=== PATIENT | female | born 1955 | race Caucasian/White ===

== ENCOUNTER 2022-05-18 04:18 | Day surgery (SDC) | payer OTHER ==
[2022-05-17 11:48] VITALS: BMI 22.1
[2022-05-18] MEDS ORDERED: TETRACAINE 0.5% OPHTH SOLN 2 ML BOTTLE ONE (07:25)
[2022-05-18] MEDS ORDERED: POVIDONE-IODINE 5% OPHTHALMIC PREP 30 ML SOLUTION ONE (07:25)
[2022-05-18] MEDS ORDERED: LIDOCAINE HCL/PF 1% SDV 5ML VIAL ONE (07:25)
[2022-05-18] MEDS ORDERED: TOBRAMYCIN/DEXAMETHASONE OPHTH. OINTMENT 1 TUBE ONE (07:25)
[2022-05-18] MEDS ORDERED: BSS (NA/CA/MG/K) BALANCED SALT SOLUTION OPHTH SOLN 15 ML BOTTLE ONE (07:33)
[2022-05-18] MEDS ORDERED: ACETAMINOPHEN 325 MG TABLET (FP) PO PRN (07:36)
[2022-05-18] MEDS ORDERED: TROPICAMIDE 1% OPHTH SOLN 15 ML BOTTLE OP SCH (07:45)
[2022-05-18] MEDS ORDERED: KETOROLAC TROMETHAMINE 0.5% EYE DROP 1 DROP DROPS OP SCH (07:45)
[2022-05-18] MEDS ORDERED: PHENYLEPHRINE 2.5% OPHTH SOLN 15 ML BOTTLE OP SCH (07:45)
[2022-05-18] MEDS ORDERED: CIPROFLOXACIN HCL 0.3% OPHTH 2.5ML BOTTLE OP SCH (07:45)
[2022-05-18] MEDS ORDERED: CIPROFLOXACIN HCL 0.3% OPHTH 2.5ML BOTTLE ONE (08:59)
[2022-05-18] MEDS ORDERED: PHENYLEPHRINE 2.5% OPTHALMIC DROP 2ML BOTTLE ONE (08:59)
[2022-05-18] MEDS ORDERED: TROPICAMIDE 1% OPHTH SOLN 15 ML BOTTLE ONE (08:59)
[2022-05-18] MEDS ORDERED: KETOROLAC TROMETHAMINE 0.5% EYE DROP 1 DROP DROPS ONE (08:59)
[2022-05-18] MEDS ORDERED: CIPROFLOXACIN HCL 0.3% OPHTH 2.5ML BOTTLE OS ONE ×3 (09:45→10:15)
[2022-05-18] MEDS ORDERED: PHENYLEPHRINE 2.5% OPHTH SOLN 15 ML BOTTLE OS ONE ×3 (09:45→10:15)
[2022-05-18] MEDS ORDERED: TROPICAMIDE 1% OPHTH SOLN 15 ML BOTTLE OS ONE ×3 (09:45→10:15)
[2022-05-18] MEDS ORDERED: KETOROLAC TROMETHAMINE 0.5% EYE DROP 1 DROP DROPS OS ONE ×3 (09:45→10:15)
[2022-05-18 09:51] VITALS: RESP 18
[2022-05-18] MEDS ORDERED: TRYPAN BLUE 0.5 ML DISP.SYRIN ONE (11:41)
[2022-05-18] MEDS ORDERED: MIDAZOLAM HCL 2 MG/2 ML SINGLE DOSE VIAL ONE (11:46)
[2022-05-18] MEDS ORDERED: TETRACAINE 0.5% OPHTH SOLN 2 ML BOTTLE OS ONE (11:49)
[2022-05-18] MEDS ORDERED: POVIDONE-IODINE 5% OPHTHALMIC PREP 30 ML SOLUTION OS ONE (11:50)
[2022-05-18] MEDS ORDERED: BSS (NA/CA/MG/K) BALANCED SALT SOLUTION OPHTH SOLN 15 ML BOTTLE IO ONE (11:53)
[2022-05-18] MEDS ORDERED: LIDOCAINE HCL 1% PRESERVATIVE FREE - 30ML VIAL IO ONE (11:55)
[2022-05-18] MEDS ORDERED: TRYPAN BLUE 0.5 ML DISP.SYRIN IO ONE (11:55)
[2022-05-18] MEDS ORDERED: CHONDROITIN SU A/HYALUR SOD 1 KIT IO ONE (11:56)
[2022-05-18] MEDS ORDERED: EPINEPHrine/PF 1 MG/1 ML (1:1,000) AMPULE SQ ONE (12:00)
[2022-05-18] MEDS ORDERED: TOBRAMYCIN/DEXAMETHASONE OPHTH. OINTMENT 1 TUBE OS ONE (12:10)
[2022-05-18 15:11] VITALS: BP 130/70; PULSE 90; TEMP 98
== END 2022-05-18 13:30 | disposition home or self-care (01) ==
LOC: JASU-SURG 04:18
PROVIDERS: ATTEND Ophthalmology
PROC: 08RK3JZ Replacement of Left Lens with Synthetic Substitute, Percutaneous Approach (ICD-10-PCS; principal; 2022-05-18 11:30)
DX: H26.9 Unspecified cataract (principal)

== ENCOUNTER 2022-06-01 04:02 | Day surgery (SDC) | payer OTHER ==
[2022-05-30 09:33] VITALS: BMI 22.1
[~2022-06-01 04:02] MED LIST: BSS (NA/CA/MG/K) BALANCED SALT SOLUTION OPHTH SOLN 15 ML BOTTLE OD ONE; CHONDROITIN SU A/HYALUR SOD 1 KIT IO ONE; EPINEPHrine/PF 1 MG/1 ML (1:1,000) AMPULE SQ ONE; LIDOCAINE 1% P/F 10 MG/ML VIAL PNB ONE; POVIDONE-IODINE 5% OPHTHALMIC PREP 30 ML SOLUTION OD ONE; TETRACAINE 0.5% OPHTH SOLN 2 ML BOTTLE OD ONE; TOBRAMYCIN/DEXAMETHASONE OPHTH. OINTMENT 1 TUBE OD ONE
[2022-06-01] MEDS ORDERED: TOBRAMYCIN/DEXAMETHASONE OPHTH. OINTMENT 1 TUBE ONE (07:30)
[2022-06-01] MEDS ORDERED: LIDOCAINE HCL/PF 2% SDV 5ML VIAL ONE (07:30)
[2022-06-01] MEDS ORDERED: BUPIVACAINE HCL/PF 0.75% 10 ML VIAL ONE (07:31)
[2022-06-01] MEDS ORDERED: POVIDONE-IODINE 5% OPHTHALMIC PREP 30 ML SOLUTION ONE (07:31)
[2022-06-01] MEDS ORDERED: ACETAMINOPHEN 325 MG TABLET (FP) PO PRN (07:32)
[2022-06-01] MEDS: PHENYLEPHRINE 2.5% OPHTH SOLN 15 ML BOTTLE OP SCH ×3 (09:10→09:34)
[2022-06-01] MEDS: KETOROLAC TROMETHAMINE 0.5% EYE DROP 1 DROP DROPS OP SCH ×3 (09:10→09:34)
[2022-06-01] MEDS: CIPROFLOXACIN HCL 0.3% OPHTH 2.5ML BOTTLE OP SCH ×3 (09:10→09:34)
[2022-06-01] MEDS: TROPICAMIDE 1% OPHTH SOLN 15 ML BOTTLE OP SCH ×3 (09:10→09:34)
[2022-06-01] MEDS ORDERED: PHENYLEPHRINE 2.5% OPTHALMIC DROP 2ML BOTTLE ONE (09:18)
[2022-06-01] MEDS ORDERED: KETOROLAC TROMETHAMINE 0.5% EYE DROP 1 DROP DROPS ONE (09:18)
[2022-06-01] MEDS ORDERED: CIPROFLOXACIN HCL 0.3% OPHTH 2.5ML BOTTLE ONE (09:18)
[2022-06-01] MEDS ORDERED: TROPICAMIDE 1% OPHTH SOLN 15 ML BOTTLE ONE (09:18)
[2022-06-01] MEDS ORDERED: LIDOCAINE HCL/PF 1% SDV 5ML VIAL ONE (11:54)
[2022-06-01] MEDS ORDERED: MIDAZOLAM HCL 2 MG/2 ML SINGLE DOSE VIAL ONE (12:22)
[2022-06-01] MEDS ORDERED: TETRACAINE 0.5% OPHTH SOLN 2 ML BOTTLE OD ONE (12:24)
[2022-06-01] MEDS ORDERED: POVIDONE-IODINE 5% OPHTHALMIC PREP 30 ML SOLUTION OD ONE (12:25)
[2022-06-01] MEDS ORDERED: BSS (NA/CA/MG/K) BALANCED SALT SOLUTION OPHTH SOLN 15 ML BOTTLE OD ONE (12:28)
[2022-06-01] MEDS ORDERED: TRYPAN BLUE 0.5 ML DISP.SYRIN IO ONE ×2 (12:31→12:32)
[2022-06-01] MEDS ORDERED: LIDOCAINE 1% P/F 10 MG/ML VIAL PNB ONE (12:31)
[2022-06-01] MEDS ORDERED: CHONDROITIN SU A/HYALUR SOD 1 KIT IO ONE (12:33)
[2022-06-01] MEDS ORDERED: EPINEPHrine/PF 1 MG/1 ML (1:1,000) AMPULE SQ ONE (12:37)
[2022-06-01] MEDS ORDERED: TOBRAMYCIN/DEXAMETHASONE OPHTH. OINTMENT 1 TUBE OD ONE (12:49)
[2022-06-01 15:13] VITALS: RESP 18
[2022-06-01 15:16] VITALS: BP 108/65; PULSE 89; TEMP 97.9
== END 2022-06-01 14:04 ==
LOC: JASU-SURG 04:02
PROVIDERS: ATTEND Ophthalmology
PROC: 08RJ3JZ Replacement of Right Lens with Synthetic Substitute, Percutaneous Approach (ICD-10-PCS; principal; 2022-06-01 11:30)
DX: H26.9 Unspecified cataract (principal)
CPT/HCPCS: V2632

== ENCOUNTER 2023-01-02 04:26 | Day surgery (SDC) | payer OTHER ==
[2022-12-13 13:24] VITALS: BMI 22.8
[2023-01-02] MEDS ORDERED: HEPARIN NA (PORCINE) 5,000 UNITS/ML 1ML VIAL ONE (10:07)
[2023-01-02] MEDS ORDERED: ceFAZolin SODIUM 1 GM VIAL IVPB ONE (10:30)
[2023-01-02] MEDS ORDERED: BUPIVACAINE HCL/PF 0.25% (2.5MG/ML) 10 ML VIAL IJ ONE ×2 (10:53)
[2023-01-02] MEDS ORDERED: DEXAMETHASONE SOD PHOSPHATE 4 MG/1 ML VIAL ONE (11:38)
[2023-01-02] MEDS ORDERED: ONDANSETRON 4 MG/2 ML VIAL ONE (11:38)
[2023-01-02] MEDS ORDERED: SUGAMMADEX SODIUM 200 MG/2 ML VIAL ONE (12:07)
[2023-01-02] MEDS ORDERED: ONDANSETRON 4 MG/2 ML VIAL IVPUSH PRN (13:26)
[2023-01-02] MEDS ORDERED: oxyCODONE HCL 5 MG TABLET PO PRN (13:26)
[2023-01-02] MEDS ORDERED: ACETAMINOPHEN 500 MG TABLET (FP) PO PRN (13:26)
[2023-01-02] MEDS ORDERED: LABETALOL HCL 5 MG/1 ML (100MG/20 ML VIAL) IVPUSH ONE (13:28)
[2023-01-02] MEDS ORDERED: LACTATED RINGERS SOLUTION 1,000 ML IV SCH (13:30)
[2023-01-02] MEDS ORDERED: LABETALOL HCL 5 MG/1 ML (100MG/20 ML VIAL) ONE (13:50)
[2023-01-02] MEDS ORDERED: ACETAMINOPHEN 500 MG TABLET (FP) ONE (16:36)
[2023-01-02 17:13] VITALS: RESP 20
[2023-01-02 18:21] VITALS: BP 126/70; PULSE 70; TEMP 97.8
== END 2023-01-02 18:21 | disposition home or self-care (01) ==
LOC: JASU-SURG 04:26
PROVIDERS: ATTEND Surgery
PROC: 8E0W4CZ Robotic Assisted Procedure of Trunk Region, Percutaneous Endoscopic Approach (ICD-10-PCS; 2023-01-02)
PROC: 0WUF4JZ Supplement Abdominal Wall with Synthetic Substitute, Percutaneous Endoscopic Approach (ICD-10-PCS; principal; 2023-01-02 10:00)
DX: K42.9 Umbilical hernia without obstruction or gangrene (principal)
CPT/HCPCS: 86850; 86900; 86901; 94760; C1781; J1644

== ENCOUNTER 2023-03-28 18:32 | Emergency (ER) | payer OTHER ==
[2023-03-28 18:55] VITALS: BMI 23.8
[2023-03-28] MEDS ORDERED: ACETAMINOPHEN 325 MG TABLET (FP) PO ONE (19:51)
[2023-03-28] MEDS ORDERED: ACETAMINOPHEN 325 MG TABLET (FP) ONE (20:32)
[2023-03-28 20:48] LABS: EOS % 6.5 % (0-4.5); HEMOGLOBIN 10.8 GM/dL (10.7-15.3); LYMPH % 36.8 % (8-40); MCHC 32.7 g/dl (32.0-36.0); MEAN PLT VOLUME 7.5 fl (7.5-11.1); MONO % 9.9 % (3.8-10.2); NEUT % 45.8 % (42.8-82.8); PLATELET COUNT 231 10^3/uL (134-434); RBC 3.37 M/mm3 (3.60-5.2); RDW 15.6 % (11.6-15.6); WHITE BLOOD COUNT 6.8 K/mm3 (4.0-10.0)
[2023-03-28 20:57] LABS: INR 0.99 (0.83-1.09); PROTHROMBIN TIME (PATIENT) 11.5 SEC (9.7-13.0)
[2023-03-28 21:00] LABS: ACTIVATED PTT 28.3 SECONDS (25.2-36.5)
[2023-03-28 21:02] LABS: CHLORIDE 108 mmol/L (98-107); POTASSIUM 3.8 mmol/L (3.5-5.1); SODIUM 141 mmol/L (136-145)
[2023-03-28 21:04] LABS: ALBUMIN 3.1 g/dl (3.4-5.0); ANION GAP 6 mmol/L (4-13); CALCIUM 9.2 mg/dL (8.5-10.1); CO2 27 mmol/L (21-32); GLUCOSE,RANDOM 94 mg/dL (74-106)
[2023-03-28 21:07] LABS: CREATININE 0.8 mg/dL (0.55-1.3); SGOT/AST 20 U/L (15-37); SGPT/ALT 14 U/L (13-61)
[2023-03-28 21:09] LABS: BILIRUBIN,TOTAL < 0.1 mg/dL (0.2-1); TOT PROT 7.4 g/dl (6.4-8.2)
[2023-03-28 21:10] LABS: ALK PHOS 139 U/L (45-117)
[2023-03-29 11:18] VITALS: BP 130/76; PULSE 94; RESP 16; TEMP 98.1
== END 2023-03-29 11:31 | disposition home or self-care (01) ==
LOC: JER 18:32
DX: R04.0 Epistaxis (principal); I10 Essential (primary) hypertension; R42 Dizziness and giddiness; R51.9 Headache, unspecified
CPT/HCPCS: 36415; 80053; 85025; 85610; 85730; 86850; 86900; 86901; 93005; 93010; 99284-25

== ENCOUNTER 2023-06-13 10:45 | Emergency (ER) | payer OTHER ==
[2023-06-13 11:13] VITALS: BP 117/72; PULSE 92; RESP 18; TEMP 98.4; BMI 21.3
[2023-06-13 13:31] LABS: BASO % 0.5 % (0-2.0); EOS % 4.7 % (0-4.5); HEMATOCRIT 35.9 % (32.4-45.2); HEMOGLOBIN 11.8 GM/dL (10.7-15.3); LYMPH % 19.9 % (8-40); MCH 31.1 pg (25.7-33.7); MEAN CELL VOLUME 94.3 fl (80-96); MONO % 7.7 % (3.8-10.2); NEUT % 67.2 % (42.8-82.8); PLATELET COUNT 249 10^3/uL (134-434); RBC 3.81 M/mm3 (3.60-5.2); RDW 15.4 % (11.6-15.6); WHITE BLOOD COUNT 8.8 K/mm3 (4.0-10.0)
[2023-06-13 13:52] LABS: CHLORIDE 100 mmol/L (98-107)
[2023-06-13 13:57] LABS: CALCIUM 8.6 mg/dL (8.5-10.1)
[2023-06-13 13:58] LABS: ALBUMIN 2.3 g/dl (3.4-5.0); BLOOD UREA NITROGEN 18.6 mg/dL (7-18); GLUCOSE,RANDOM 78 mg/dL (74-106)
[2023-06-13 14:01] LABS: CREATININE 0.8 mg/dL (0.55-1.3)
[2023-06-13] MEDS ORDERED: ALBUTEROL SO4 2.5/IPRATROPIUM 0.5 INH SOL 3 ML VIAL.NEB. NEB ONE (14:09)
[2023-06-13] MEDS ORDERED: methylPREDNISolone NA SUCC 125 MG/2 ML VIAL ONE (14:10)
[2023-06-13] MEDS: methylPREDNISolone NA SUCC 125 MG/2 ML VIAL IVPUSH ONE (14:14)
[2023-06-13] MEDS: ALBUTEROL SO4 2.5/IPRATROPIUM 0.5 INH SOL 3 ML VIAL.NEB. NEB SCH (14:14)
[2023-06-13 15:22] LABS: POTASSIUM 3.9 mmol/L (3.5-5.1)
[2023-06-13 15:25] LABS: MAGNESIUM 2.1 mg/dL (1.8-2.4)
[2023-06-13 15:28] LABS: CREATININE 0.8 mg/dL (0.55-1.3)
[2023-06-13 15:29] LABS: BILIRUBIN,TOTAL 0.2 mg/dL (0.2-1)
[2023-06-13 15:31] LABS: ALBUMIN 3.1 g/dl (3.4-5.0); TOT PROT 7.5 g/dl (6.4-8.2)
[2023-06-13 17:05] LABS: EPI CELLS 10 /uL (0-25.1); HYALINE CASTS 0 /uL (0-3.1); URINE APPEARANCE CLOUDY; URINE BACTERIA 386 /uL (0-1359); URINE BILIRUBIN NEGATIVE (NEGATIVE); URINE COLOR YELLOW; URINE GLUCOSE (UA) NEGATIVE (NEGATIVE); URINE KETONE NEGATIVE (NEGATIVE); URINE LEUK ESTERASE 2+ (NEGATIVE); URINE NITRITE NEGATIVE (NEGATIVE); URINE PROTEIN TRACE (NEGATIVE); URINE RBC 4290 /uL (0-23.9); URINE UROBILINOGEN 0.2 mg/dL (0.2-1.0); URINE WBC 1034 /uL (0-25.8)
== END 2023-06-13 21:39 ==
LOC: JER 10:45
PROC: 3E033GC Introduction of Other Therapeutic Substance into Peripheral Vein, Percutaneous Approach (ICD-10-PCS; principal; 2023-06-13)
PROC: 3E0F7GC Introduction of Other Therapeutic Substance into Respiratory Tract, Via Natural or Artificial Opening (ICD-10-PCS; 2023-06-13)
DX: R04.2 Hemoptysis (principal); R05.9 Cough, unspecified; R07.89 Other chest pain; J43.9 Emphysema, unspecified; J44.9 Chronic obstructive pulmonary disease, unspecified; N39.0 Urinary tract infection, site not specified; Z20.822 Contact with and (suspected) exposure to COVID-19
CPT/HCPCS: 0241U-QW; 36415; 71046-TC-FY; 71250-TC; 80053; 81003; 83735; 84484; 85025; 87086; 93005; 93010; 99285-25

== ENCOUNTER 2023-08-30 02:29 | Inpatient (IN) | payer OTHER ==
[2023-08-30] MEDS ORDERED: ACETAMINOPHEN INJECTION 100 ML IVPB ONE (03:18)
[2023-08-30] MEDS ORDERED: PANTOPRAZOLE SODIUM 40 MG VIAL ONE (03:19)
[2023-08-30] MEDS ORDERED: FAMOTIDINE 20 MG/50 ML IVPB 20 MG/50 ML MG IVPB ONE (03:19)
[2023-08-30] MEDS: PANTOPRAZOLE SODIUM 40 MG VIAL IVPUSH ONE (03:35)
[2023-08-30 03:47] LABS: BASO % 0.2 % (0-2.0); EOS % 1.4 % (0-4.5); HEMATOCRIT 39.6 % (32.4-45.2); LYMPH % 9.8 % (8-40); MCH 30.7 pg (25.7-33.7); MCHC 32.7 g/dl (32.0-36.0); MEAN PLT VOLUME 8.5 fl (7.5-11.1); MONO % 3.5 % (3.8-10.2); NEUT % 85.1 % (42.8-82.8); PLATELET COUNT 235 10^3/uL (134-434); RBC 4.22 M/mm3 (3.60-5.2); RDW 14.8 % (11.6-15.6); WHITE BLOOD COUNT 10.2 K/mm3 (4.0-10.0)
[2023-08-30 03:52] LABS: INR 0.96 (0.83-1.09); PROTHROMBIN TIME (PATIENT) 10.9 SEC (9.7-13.0)
[2023-08-30] MEDS: LACTATED RINGERS SOLUTION 1000 ML INFUS.BAG IV ONE (03:56)
[2023-08-30] MEDS: ACETAMINOPHEN 1000 MG/100 ML BAG IVPB ONE (03:56)
[2023-08-30 04:06] LABS: POTASSIUM 4.1 mmol/L (3.5-5.1)
[2023-08-30 04:08] LABS: CALCIUM 9.4 mg/dL (8.5-10.1); MAGNESIUM 2.1 mg/dL (1.8-2.4)
[2023-08-30 04:09] LABS: ALBUMIN 3.2 g/dl (3.4-5.0)
[2023-08-30 04:11] LABS: CREATININE 0.9 mg/dL (0.55-1.3)
[2023-08-30 04:13] LABS: BILIRUBIN,TOTAL 0.3 mg/dL (0.2-1)
[2023-08-30] MEDS: FAMOTIDINE 20 MG/50 ML IVPB 20 MG/50 ML MG IVPB ONE (04:19)
[2023-08-30 04:25] LABS: LACTIC ACID 2.2 mmol/L (0.4-2.0)
[2023-08-30 06:19] LABS: HEMATOCRIT 36.3 % (32.4-45.2); HEMOGLOBIN 11.6 GM/dL (10.7-15.3); MCH 30.3 pg (25.7-33.7); MCHC 32.1 g/dl (32.0-36.0); MEAN CELL VOLUME 94.4 fl (80-96); MEAN PLT VOLUME 8.4 fl (7.5-11.1); PLATELET COUNT 194 10^3/uL (134-434); RBC 3.84 M/mm3 (3.60-5.2); RDW 14.6 % (11.6-15.6); WHITE BLOOD COUNT 7.9 K/mm3 (4.0-10.0)
[2023-08-30 06:40] LABS: POTASSIUM 4.1 mmol/L (3.5-5.1)
[2023-08-30 06:41] LABS: CALCIUM 8.6 mg/dL (8.5-10.1)
[2023-08-30 06:42] LABS: BLOOD UREA NITROGEN 18.7 mg/dL (7-18); MAGNESIUM 1.9 mg/dL (1.8-2.4)
[2023-08-30 06:45] LABS: CREATININE 0.7 mg/dL (0.55-1.3)
[2023-08-30 07:04] LABS: LACTIC ACID 2.3 mmol/L (0.4-2.0)
[2023-08-30 08:29] LABS: PH,URINE 5.5 (5.0-8.0); URINE APPEARANCE CLOUDY; URINE BILIRUBIN NEGATIVE (NEGATIVE); URINE COLOR YELLOW; URINE GLUCOSE (UA) NEGATIVE (NEGATIVE); URINE KETONE NEGATIVE (NEGATIVE); URINE PROTEIN TRACE (NEGATIVE); URINE UROBILINOGEN 0.2 mg/dL (0.2-1.0)
[2023-08-30 08:30] LABS: EPI CELLS 22 /uL (0-25.1); HYALINE CASTS 8 /uL (0-3.1); URINE BACTERIA 371 /uL (0-1359); URINE LEUK ESTERASE TRACE (NEGATIVE); URINE NITRITE NEGATIVE (NEGATIVE); URINE RBC 1993 /uL (0-23.9); URINE WBC 1180 /uL (0-25.8)
[2023-08-30] MEDS ORDERED: ACETAMINOPHEN 1000 MG/100 ML BAG IVPB PRN (10:15)
[2023-08-30 11:51] VITALS: BMI 25.0
[2023-08-30] MEDS ORDERED: oxyCODONE HCL 5 MG TABLET PO PRN (12:12)
[2023-08-30] MEDS ORDERED: ALBUTEROL SO4 HFA INHALER IH PRN (12:12)
[2023-08-30] MEDS: ERTAPENEM SODIUM 1 GM in SODIUM CHLORIDE 50 ML IVPB SCH (14:00)
[2023-08-30] MEDS: SODIUM CHLORIDE 1,000 ML IV SCH (14:00)
[2023-08-30] MEDS: METHOCARBAMOL 500 MG TABLET PO SCH (14:02)
[2023-08-30] MEDS: GABAPENTIN 300 MG CAPSULE PO SCH (14:02)
[2023-08-30] MEDS: ACETAMINOPHEN 1000 MG/100 ML BAG IVPB PRN (20:16)
[2023-08-30] MEDS: ATORVASTATIN CA 80 MG TABLET (FP) PO SCH (22:06)
[2023-08-31 08:55] LABS: POTASSIUM 3.7 mmol/L (3.5-5.1)
[2023-08-31 09:09] LABS: CALCIUM 8.4 mg/dL (8.5-10.1)
[2023-08-31 09:10] LABS: BLOOD UREA NITROGEN 14.6 mg/dL (7-18)
[2023-08-31 09:11] LABS: BASO % 0.4 % (0-2.0); EOS % 5.8 % (0-4.5); HEMATOCRIT 33.9 % (32.4-45.2); LYMPH % 34.5 % (8-40); MCH 30.5 pg (25.7-33.7); MCHC 32.5 g/dl (32.0-36.0); MEAN CELL VOLUME 93.9 fl (80-96); MEAN PLT VOLUME 8.4 fl (7.5-11.1); NEUT % 44.3 % (42.8-82.8); PLATELET COUNT 173 10^3/uL (134-434); RBC 3.61 M/mm3 (3.60-5.2)
[2023-08-31 09:12] LABS: CREATININE 0.7 mg/dL (0.55-1.3)
[2023-08-31 09:13] LABS: TOT PROT 6.1 g/dl (6.4-8.2)
[2023-08-31 09:14] LABS: BILIRUBIN,TOTAL 0.2 mg/dL (0.2-1)
[2023-08-31 09:16] LABS: ALBUMIN 2.5 g/dl (3.4-5.0)
[2023-08-31] MEDS: CLOPIDOGREL BISULFATE 75 MG TABLET (FP) PO SCH (10:20)
[2023-08-31] MEDS: ASPIRIN 81 MG CHEWABLE TABLETS PO SCH (10:20)
[2023-08-31] MEDS: FAMOTIDINE 20 MG TABLET PO SCH (10:20)
[2023-08-31] MEDS: DULoxetine HCL 20 MG CAPSULE.DR PO SCH (10:20)
[2023-08-31] MEDS: oxyCODONE HCL 5 MG TABLET PO PRN (18:27)
[2023-09-01] MEDS ORDERED: ALBUTEROL SO4 2.5/IPRATROPIUM 0.5 INH SOL 3 ML VIAL.NEB. NEB PRN (12:11)
[2023-09-01] MEDS: TAMSULOSIN HCL 0.4 MG CAP PO SCH (13:19)
[2023-09-01] MEDS: BUDESONIDE/FORMETEROL FUMARATE 160/4.5 mcg INHALER IH SCH (14:47)
[2023-09-01] MEDS: ONDANSETRON 4 MG TABLET PO ONE (14:48)
[2023-09-02] MEDS ORDERED: POLYETHYLENE GLYCOL (HEALTHYLAX) 3350 17 GM PACKET PO PRN (10:42)
[2023-09-02] MEDS: ACETAMINOPHEN 325 MG TABLET (FP) PO PRN (18:40)
[2023-09-03] MEDS: BISMUTH SUBSALICYLATE 524 MG/30 ML PO PRN (14:01)
[2023-09-03 15:31] VITALS: RESP 18
[2023-09-04 07:42] VITALS: BP 138/86; PULSE 79; TEMP 98.3
== END 2023-09-04 14:45 | DRG 392 ==
LOC: JER 02:29 → JERBED 09:42 → J8W 11:04 → OBSVTOIN 08-31 11:11
PROVIDERS: ADMIT Internal Medicine; ATTEND Internal Medicine
DX: K52.9 Noninfective gastroenteritis and colitis, unspecified (principal); J45.909 Unspecified asthma, uncomplicated; J44.9 Chronic obstructive pulmonary disease, unspecified; E78.5 Hyperlipidemia, unspecified; I25.10 Atherosclerotic heart disease of native coronary artery without angina pectoris; I73.9 Peripheral vascular disease, unspecified; M32.9 Systemic lupus erythematosus, unspecified; N20.0 Calculus of kidney; I12.9 Hypertensive chronic kidney disease with stage 1 through stage 4 chronic kidney disease, or unspecified chronic kidney disease; N18.9 Chronic kidney disease, unspecified; F32.A Depression, unspecified; R50.9 Fever, unspecified; R32 Unspecified urinary incontinence; Z89.612 Acquired absence of left leg above knee; Z89.511 Acquired absence of right leg below knee; Z95.5 Presence of coronary angioplasty implant and graft
CPT/HCPCS: 36415; 74177-TC; 80048; 80053; 81003; 83605; 83690; 83735; 84484; 85025; 85027; 85610; 85730; 86850; 86900; 86901; 87040; 87086; 87635; 93005; 93010; 99285-25; G0378; J0131; Q9967

== ENCOUNTER 2023-10-04 23:41 | Inpatient (IN) | payer OTHER ==
[2023-10-04 23:48] VITALS: BMI 28.7
[2023-10-05] MEDS ORDERED: NYSTATIN 500,000 UNITS/5 ML SUSPENSION ONE (00:44)
[2023-10-05] MEDS ORDERED: ALBUTEROL SO4 2.5/IPRATROPIUM 0.5 INH SOL 3 ML VIAL.NEB. NEB ONE (00:44)
[2023-10-05 00:48] LABS: BASO % 0.7 % (0-2.0); EOS % 1.9 % (0-4.5); HEMATOCRIT 35.9 % (32.4-45.2); HEMOGLOBIN 11.9 GM/dL (10.7-15.3); LYMPH % 16.2 % (8-40); MCH 30.9 pg (25.7-33.7); MEAN CELL VOLUME 93.4 fl (80-96); MEAN PLT VOLUME 7.5 fl (7.5-11.1); MONO % 9.7 % (3.8-10.2); NEUT % 71.5 % (42.8-82.8); PLATELET COUNT 286 10^3/uL (134-434); RBC 3.85 M/mm3 (3.60-5.2); RDW 14.4 % (11.6-15.6); WHITE BLOOD COUNT 10.5 K/mm3 (4.0-10.0)
[2023-10-05] MEDS: NYSTATIN 500,000 UNITS/5 ML SUSPENSION PO ONE (00:50)
[2023-10-05] MEDS: ALBUTEROL SO4 2.5/IPRATROPIUM 0.5 INH SOL 3 ML VIAL.NEB. NEB SCH (00:53)
[2023-10-05] MEDS: LACTATED RINGERS SOLUTION 1000 ML INFUS.BAG IV ONE (01:00)
[2023-10-05 01:03] LABS: THROAT:GRP A STREP NOT DETECTED (NOTDETECTED)
[2023-10-05 01:15] LABS: POTASSIUM 3.6 mmol/L (3.5-5.1)
[2023-10-05 01:17] LABS: CALCIUM 9.2 mg/dL (8.5-10.1)
[2023-10-05 01:18] LABS: ALBUMIN 2.9 g/dl (3.4-5.0)
[2023-10-05 01:21] LABS: CREATININE 1.1 mg/dL (0.55-1.3)
[2023-10-05 01:23] LABS: BILIRUBIN,TOTAL 0.4 mg/dL (0.2-1)
[2023-10-05] MEDS ORDERED: ACETAMINOPHEN INJECTION 100 ML IVPB ONE (02:06)
[2023-10-05] MEDS ORDERED: METOCLOPRAMIDE HCL INJECTION 10 MG/2 ML VIAL ONE (02:06)
[2023-10-05] MEDS: METOCLOPRAMIDE HCL INJECTION 10 MG/2 ML VIAL IVPUSH ONE (02:10)
[2023-10-05] MEDS: ACETAMINOPHEN 1000 MG/100 ML BAG IVPB ONE (02:10)
[2023-10-05 03:06] LABS: EPI CELLS >36 /uL (0-25.1); HYALINE CASTS 12 /uL (0-3.1); PH,URINE 5.5 (5.0-8.0); URINE APPEARANCE TURBID; URINE BACTERIA 2374 /uL (0-1359); URINE BILIRUBIN NEGATIVE (NEGATIVE); URINE COLOR DK YELLOW; URINE GLUCOSE (UA) NEGATIVE (NEGATIVE); URINE KETONE TRACE (NEGATIVE); URINE LEUK ESTERASE 3+ (NEGATIVE); URINE NITRITE NEGATIVE (NEGATIVE); URINE PROTEIN 2+ (NEGATIVE); URINE WBC 31486 /uL (0-25.8)
[2023-10-05] MEDS ORDERED: CEFTRIAXONE 1 GM/50 ML BAG ONE (04:00)
[2023-10-05] MEDS: CEFTRIAXONE 1,000 MG in DEXTROSE 5%-WATER - 50 ML IVPB ONE (04:06)
[2023-10-05 08:22] LABS: URINE RBC 1609 /uL (0-23.9)
[2023-10-05] MEDS ORDERED: ALBUTEROL SO4 HFA INHALER IH PRN (10:37)
[2023-10-05] MEDS: MAG HYDROX/ALH/SMC/DPHA/LIDO 240 ML MOUTHWASH MM SCH (11:22)
[2023-10-05] MEDS: oxyCODONE HCL 5 MG TABLET PO PRN (11:30)
[2023-10-05] MEDS: METHOCARBAMOL 500 MG TABLET PO SCH (13:25)
[2023-10-05] MEDS: GABAPENTIN 300 MG CAPSULE PO SCH (13:25)
[2023-10-05] MEDS: ACETAMINOPHEN 325 MG TABLET (FP) PO PRN (15:58)
[2023-10-05] MEDS: guaiFENesin 200 MG/10 ML 10 ML UNIT-DOSE CUPS PO PRN (17:38)
[2023-10-05] MEDS: ATORVASTATIN CA 80 MG TABLET (FP) PO SCH (21:56)
[2023-10-06] MEDS: FAMOTIDINE 20 MG TABLET PO SCH (09:05)
[2023-10-06] MEDS: CLOPIDOGREL BISULFATE 75 MG TABLET (FP) PO SCH (09:05)
[2023-10-06] MEDS: ASPIRIN 81 MG CHEWABLE TABLETS PO SCH (09:05)
[2023-10-06] MEDS: DULoxetine HCL 20 MG CAPSULE.DR PO SCH (09:08)
[2023-10-06] MEDS: CEFTRIAXONE 1 GM in DEXTROSE 5%-WATER - 50 ML IVPB SCH (09:12)
[2023-10-06 09:51] LABS: BASO % 0.4 % (0-2.0); EOS % 3.8 % (0-4.5); HEMATOCRIT 31.5 % (32.4-45.2); HEMOGLOBIN 10.5 GM/dL (10.7-15.3); LYMPH % 10.6 % (8-40); MCHC 33.4 g/dl (32.0-36.0); MEAN CELL VOLUME 92.6 fl (80-96); MEAN PLT VOLUME 7.6 fl (7.5-11.1); NEUT % 78.2 % (42.8-82.8); PLATELET COUNT 239 10^3/uL (134-434); RDW 14.5 % (11.6-15.6); WHITE BLOOD COUNT 8.6 K/mm3 (4.0-10.0)
[2023-10-06 10:23] LABS: POTASSIUM 3.2 mmol/L (3.5-5.1)
[2023-10-06 10:25] LABS: CALCIUM 8.9 mg/dL (8.5-10.1)
[2023-10-06 10:26] LABS: ALBUMIN 2.5 g/dl (3.4-5.0); BLOOD UREA NITROGEN 12.2 mg/dL (7-18)
[2023-10-06 10:29] LABS: CREATININE 0.9 mg/dL (0.55-1.3)
[2023-10-06 10:30] LABS: BILIRUBIN,TOTAL 0.3 mg/dL (0.2-1)
[2023-10-06] MEDS: POTASSIUM CHLORIDE ORAL LIQUID 20 MEQ/15 ML PO ONE (12:22)
[2023-10-06] MEDS: NYSTATIN 500,000 UNITS/5 ML SUSPENSION PO SCH (12:24)
[2023-10-06] MEDS: POLYETHYLENE GLYCOL (HEALTHYLAX) 3350 17 GM PACKET PO SCH (13:14)
[2023-10-07] MEDS: BENZOCAINE/MENTHOL 1 EACH LOZENGE MM PRN (17:01)
[2023-10-08 01:24] VITALS: RESP 18
[2023-10-08] MEDS: methylPREDNISolone NA SUCC 40 MG/1 ML VIAL IVPUSH SCH (11:08)
[2023-10-10] MEDS: methylPREDNISolone NA SUCC 40 MG/1 ML VIAL IVPUSH SCH (17:04)
[2023-10-11 10:48] LABS: BASO % 0.2 % (0-2.0); HEMATOCRIT 33.6 % (32.4-45.2); HEMOGLOBIN 10.8 GM/dL (10.7-15.3); LYMPH % 13.3 % (8-40); MCH 29.9 pg (25.7-33.7); MCHC 32.2 g/dl (32.0-36.0); MEAN CELL VOLUME 92.9 fl (80-96); MEAN PLT VOLUME 7.1 fl (7.5-11.1); MONO % 3.5 % (3.8-10.2); PLATELET COUNT 370 10^3/uL (134-434); RBC 3.61 M/mm3 (3.60-5.2); RDW 14.5 % (11.6-15.6); WHITE BLOOD COUNT 11.8 K/mm3 (4.0-10.0)
[2023-10-11 11:09] LABS: CALCIUM 9.3 mg/dL (8.5-10.1)
[2023-10-11 11:10] LABS: BLOOD UREA NITROGEN 23.5 mg/dL (7-18)
[2023-10-11 11:13] LABS: CREATININE 0.7 mg/dL (0.55-1.3)
[2023-10-11] MEDS: DOCUSATE SODIUM 100 MG CAPSULE (FP) PO PRN (13:20)
[2023-10-12] MEDS: methylPREDNISolone NA SUCC 40 MG/1 ML VIAL IVPUSH SCH (21:47)
[2023-10-14] MEDS: predniSONE 20 MG TABLET (UD) PO SCH (10:56)
[2023-10-14] MEDS: POLYETHYLENE GLYCOL (HEALTHYLAX) 3350 17 GM PACKET PO ONE (10:56)
[2023-10-14] MEDS: DOCUSATE SODIUM 100 MG CAPSULE (FP) PO SCH (21:27)
[2023-10-15 23:51] VITALS: BP 137/73; PULSE 91; TEMP 98
== END 2023-10-15 22:00 | DRG 191 ==
LOC: JER 23:41 → JERBED 10-05 03:57 → J6S 10-05 10:29 → OBSVTOIN 10-05 10:40
PROVIDERS: ADMIT Internal Medicine; ATTEND Internal Medicine
DX: J44.1 Chronic obstructive pulmonary disease with (acute) exacerbation (principal); B37.0 Candidal stomatitis; N39.0 Urinary tract infection, site not specified; J06.9 Acute upper respiratory infection, unspecified; J45.909 Unspecified asthma, uncomplicated; I10 Essential (primary) hypertension; I73.9 Peripheral vascular disease, unspecified; E78.5 Hyperlipidemia, unspecified; R05.1 Acute cough; K21.9 Gastro-esophageal reflux disease without esophagitis
CPT/HCPCS: 0241U-QW; 36415; 71045-TC-FY; 80048; 80053; 81003; 82962; 83735; 85025; 87086; 87635; 87651; 99285-25; G0378; J0131

== ENCOUNTER 2023-10-21 11:00 | Emergency (ER) | payer OTHER ==
[2023-10-21 11:28] VITALS: BMI 24.8
[2023-10-21] MEDS ORDERED: ACETAMINOPHEN INJECTION 100 ML IVPB ONE (11:43)
[2023-10-21] MEDS ORDERED: FAMOTIDINE 20 MG/50 ML IVPB 20 MG/50 ML MG IVPB ONE (11:44)
[2023-10-21] MEDS: FAMOTIDINE 20 MG/50 ML IVPB 20 MG/50 ML MG IVPB ONE (12:05)
[2023-10-21] MEDS: ACETAMINOPHEN 1000 MG/100 ML BAG IVPB ONE (12:05)
[2023-10-21] MEDS: LACTATED RINGERS SOLUTION 1000 ML INFUS.BAG IV ONE (12:05)
[2023-10-21 12:11] LABS: HEMOGLOBIN 12.3 GM/dL (10.7-15.3); MCH 30.3 pg (25.7-33.7); MCHC 33.3 g/dl (32.0-36.0); MEAN PLT VOLUME 7.8 fl (7.5-11.1); PLATELET COUNT 448 10^3/uL (134-434); RBC 4.07 M/mm3 (3.60-5.2); RDW 17.8 % (11.6-15.6); WHITE BLOOD COUNT 13.1 K/mm3 (4.0-10.0)
[2023-10-21 12:33] LABS: CHLORIDE 103 mmol/L (98-107); SODIUM 134 mmol/L (136-145)
[2023-10-21 12:35] LABS: CALCIUM 9.1 mg/dL (8.5-10.1)
[2023-10-21 12:37] LABS: ALBUMIN 2.8 g/dl (3.4-5.0); BLOOD UREA NITROGEN 21.3 mg/dL (7-18); CO2 26 mmol/L (21-32); GLUCOSE,RANDOM 91 mg/dL (74-106)
[2023-10-21 12:38] LABS: ANISOCYTOSIS 1+; MACROCYTOSIS 0
[2023-10-21 12:39] LABS: CREATININE 0.9 mg/dL (0.55-1.3)
[2023-10-21 12:41] LABS: ANION GAP 4 mmol/L (4-13); BILIRUBIN,TOTAL 0.4 mg/dL (0.2-1); POTASSIUM 9.3 mmol/L (3.5-5.1); TOT PROT 7.9 g/dl (6.4-8.2)
[2023-10-21] MEDS ORDERED: MORPHINE SULFATE 2 MG/ML SYRINGE ONE (12:42)
[2023-10-21 12:43] LABS: ALK PHOS 106 U/L (45-117)
[2023-10-21 12:44] LABS: SGOT/AST 143 U/L (15-37); SGPT/ALT 30 U/L (13-61)
[2023-10-21] MEDS: morphine CARPU-JECT 2 MG/1 ML DISP.SYRIN IVPUSH ONE (12:52)
[2023-10-21 13:51] LABS: EPI CELLS 27 /uL (0-25.1); HYALINE CASTS 1 /uL (0-3.1); PH,URINE 6.5 (5.0-8.0); URINE APPEARANCE CLOUDY; URINE BACTERIA 4992 /uL (0-1359); URINE BILIRUBIN NEGATIVE (NEGATIVE); URINE COLOR YELLOW; URINE GLUCOSE (UA) NEGATIVE (NEGATIVE); URINE KETONE NEGATIVE (NEGATIVE); URINE LEUK ESTERASE 2+ (NEGATIVE); URINE NITRITE NEGATIVE (NEGATIVE); URINE PROTEIN TRACE (NEGATIVE); URINE RBC 1833 /uL (0-23.9); URINE UROBILINOGEN 0.2 mg/dL (0.2-1.0); URINE WBC 3681 /uL (0-25.8)
[2023-10-21 15:12] LABS: BLOOD UREA NITROGEN 20.6 mg/dL (7-18); CALCIUM 8.9 mg/dL (8.5-10.1); CREATININE 0.7 mg/dL (0.55-1.3); POTASSIUM 3.7 mmol/L (3.5-5.1)
[2023-10-21] MEDS ORDERED: CEFTRIAXONE 1 GM/50 ML BAG ONE (15:30)
[2023-10-21] MEDS: CEFTRIAXONE 1 GM in DEXTROSE 5%-WATER - 100 ML IVPB ONE (15:37)
[2023-10-21 16:33] VITALS: RESP 17; TEMP 98
[2023-10-21] MEDS ORDERED: KETOROLAC TROMETHAMINE 15 MG/ML VIAL ONE (17:30)
[2023-10-21] MEDS: KETOROLAC TROMETHAMINE 15 MG/ML VIAL IVPUSH ONE (17:32)
[2023-10-21] MEDS ORDERED: VALSARTAN 80 MG TABLET ONE (18:52)
[2023-10-21] MEDS: VALSARTAN 160 MG TABLET PO ONE (19:01)
[2023-10-21] MEDS: LABETALOL HCL 5 MG/1 ML (100MG/20 ML VIAL) IVPUSH ONE ×2 (19:23→19:33)
[2023-10-21] MEDS ORDERED: LABETALOL HCL 100 MG TABLET (FP) ONE (19:30)
[2023-10-21] MEDS ORDERED: ACETAMINOPHEN 325 MG TABLET (FP) ONE (19:30)
[2023-10-21] MEDS: LABETALOL HCL 100 MG TABLET (FP) PO ONE (19:32)
[2023-10-21] MEDS: ACETAMINOPHEN 325 MG TABLET (FP) PO ONE ×2 (19:32→19:35)
[2023-10-21 20:38] VITALS: BP 106/47; PULSE 88
[2023-10-22] MEDS ORDERED: ACETAMINOPHEN 325 MG TABLET (FP) ONE (00:10)
[2023-10-22] MEDS: ACETAMINOPHEN 325 MG TABLET (FP) PO ONE (00:15)
== END 2023-10-22 02:02 ==
LOC: JER 11:00
PROC: 3E03329 Introduction of Other Anti-infective into Peripheral Vein, Percutaneous Approach (ICD-10-PCS; principal; 2023-10-21)
PROC: 3E033GC Introduction of Other Therapeutic Substance into Peripheral Vein, Percutaneous Approach (ICD-10-PCS; 2023-10-21)
PROC: 3E033NZ Introduction of Analgesics, Hypnotics, Sedatives into Peripheral Vein, Percutaneous Approach (ICD-10-PCS; 2023-10-21)
PROC: 3E033NZ Introduction of Analgesics, Hypnotics, Sedatives into Peripheral Vein, Percutaneous Approach (ICD-10-PCS; 2023-10-21)
PROC: 3E0333Z Introduction of Anti-inflammatory into Peripheral Vein, Percutaneous Approach (ICD-10-PCS; 2023-10-21)
DX: R10.31 Right lower quadrant pain (principal); R10.32 Left lower quadrant pain; N30.00 Acute cystitis without hematuria; M54.50 Low back pain, unspecified
CPT/HCPCS: 36415; 74177-TC; 80048; 80053; 81003; 83690; 85025; 87086; 93005; 93010; 99285-25; J0131; Q9967

== ENCOUNTER 2024-03-02 09:23 | Inpatient (IN) | payer OTHER ==
[2024-03-02] MEDS: ACETAMINOPHEN 500 MG TABLET (FP) PO ONE (09:57)
[2024-03-02] MEDS ORDERED: LIDOCAINE 5% TOPICAL PATCH ONE (10:31)
[2024-03-02] MEDS ORDERED: METHOCARBAMOL 500 MG TABLET ONE (10:31)
[2024-03-02] MEDS: LIDOCAINE 5% TOPICAL PATCH TP ONE (10:34)
[2024-03-02] MEDS: METHOCARBAMOL 500 MG TABLET PO ONE (10:34)
[2024-03-02] MEDS ORDERED: morphine SULFATE 4 MG/ML VIAL ONE (11:17)
[2024-03-02] MEDS: morphine CARPU-JECT 4 MG/1 ML DISP.SYRIN IVPUSH ONE (12:15)
[2024-03-02] MEDS ORDERED: ONDANSETRON 4 MG/2 ML VIAL ONE (12:17)
[2024-03-02] MEDS: ONDANSETRON 4 MG/2 ML VIAL IVPUSH ONE (12:20)
[2024-03-02 12:24] LABS: INR 0.95 (0.83-1.09); PROTHROMBIN TIME (PATIENT) 10.9 SEC (9.7-13.0)
[2024-03-02 12:27] LABS: ACTIVATED PTT 21.1 SECONDS (25.2-36.5)
[2024-03-02 12:38] LABS: POTASSIUM 3.6 mmol/L (3.5-5.1)
[2024-03-02 12:40] LABS: ALBUMIN 3.2 g/dl (3.4-5.0); BLOOD UREA NITROGEN 16.1 mg/dL (7-18); CALCIUM 9.4 mg/dL (8.5-10.1)
[2024-03-02 12:44] LABS: CREATININE 0.8 mg/dL (0.55-1.3)
[2024-03-02 12:45] LABS: BILIRUBIN,TOTAL 0.4 mg/dL (0.2-1); TOT PROT 7.4 g/dl (6.4-8.2)
[2024-03-02 12:56] LABS: BASO % 0.4 % (0-2.0); EOS % 0.9 % (0-4.5); HEMOGLOBIN 11.7 GM/dL (10.7-15.3); LYMPH % 11.3 % (8-40); MCH 29.8 pg (25.7-33.7); MCHC 31.7 g/dl (32.0-36.0); MEAN CELL VOLUME 94.1 fl (80-96); MONO % 5.6 % (3.8-10.2); NEUT % 81.8 % (42.8-82.8); RBC 3.93 M/mm3 (3.60-5.2); RDW 14.9 % (11.6-15.6); WHITE BLOOD COUNT 13.4 K/mm3 (4.0-10.0)
[2024-03-02 17:14] VITALS: BMI 26.0
[2024-03-02] MEDS ORDERED: POLYETHYLENE GLYCOL 3350 255 GM BTL PO PRN (17:28)
[2024-03-02] MEDS ORDERED: ALBUTEROL SO4 2.5/IPRATROPIUM 0.5 INH SOL 3 ML VIAL.NEB. NEB PRN (17:28)
[2024-03-02] MEDS: METHOCARBAMOL 500 MG TABLET PO SCH (18:26)
[2024-03-02] MEDS: ACETAMINOPHEN 325 MG TABLET (FP) PO PRN (18:27)
[2024-03-02 20:07] LABS: EPI CELLS 11 /uL (0-25.1); HYALINE CASTS 0 /uL (0-3.1); PH,URINE 5.5 (5.0-8.0); URINE APPEARANCE CLOUDY; URINE BACTERIA 2396 /uL (0-1359); URINE BILIRUBIN NEGATIVE (NEGATIVE); URINE COLOR YELLOW; URINE GLUCOSE (UA) NEGATIVE (NEGATIVE); URINE KETONE NEGATIVE (NEGATIVE); URINE LEUK ESTERASE 2+ (NEGATIVE); URINE NITRITE NEGATIVE (NEGATIVE); URINE PROTEIN TRACE (NEGATIVE); URINE RBC 128 /uL (0-23.9); URINE UROBILINOGEN 0.2 mg/dL (0.2-1.0); URINE WBC 502 /uL (0-25.8)
[2024-03-02] MEDS: GABAPENTIN 300 MG CAPSULE PO SCH (21:12)
[2024-03-02] MEDS: ATORVASTATIN CA 80 MG TABLET (FP) PO SCH (21:12)
[2024-03-02] MEDS: LIDOCAINE PATCH REMOVAL MC ONE (21:13)
[2024-03-02] MEDS: BUDESONIDE/FORMETEROL FUMARATE 160/4.5 mcg INHALER IH SCH (21:57)
[2024-03-03 08:20] LABS: BASO % 0.4 % (0-2.0); HEMATOCRIT 33.6 % (32.4-45.2); HEMOGLOBIN 11.1 GM/dL (10.7-15.3); LYMPH % 17.1 % (8-40); MCH 30.9 pg (25.7-33.7); MCHC 33.1 g/dl (32.0-36.0); MEAN CELL VOLUME 93.2 fl (80-96); MEAN PLT VOLUME 8.1 fl (7.5-11.1); MONO % 8.3 % (3.8-10.2); NEUT % 69.2 % (42.8-82.8); PLATELET COUNT 162 10^3/uL (134-434); RBC 3.61 M/mm3 (3.60-5.2); WHITE BLOOD COUNT 7.1 K/mm3 (4.0-10.0)
[2024-03-03 08:39] LABS: CALCIUM 9.4 mg/dL (8.5-10.1)
[2024-03-03 08:40] LABS: ALBUMIN 2.7 g/dl (3.4-5.0); BLOOD UREA NITROGEN 20.6 mg/dL (7-18)
[2024-03-03 08:44] LABS: BILIRUBIN,TOTAL 0.5 mg/dL (0.2-1); TOT PROT 6.6 g/dl (6.4-8.2)
[2024-03-03] MEDS: SOLIFENACIN SUCCINATE 5 MG TAB PO SCH (09:58)
[2024-03-03] MEDS: DULoxetine HCL 20 MG CAPSULE.DR PO SCH (09:58)
[2024-03-03] MEDS: PANTOPRAZOLE 40 MG TABLET PO SCH (09:58)
[2024-03-03] MEDS ORDERED: PATIENT'S OWN MEDICATION (NON-FORMULARY) (Tizanidine Hcl 2 MG Tablet) PO SCH (10:00)
[2024-03-03] MEDS ORDERED: PATIENT'S OWN MEDICATION (NON-FORMULARY) (Vibegron [Gemtesa] 75 MG Tablet) PO SCH (10:00)
[2024-03-03] MEDS: POLYETHYLENE GLYCOL (HEALTHYLAX) 3350 17 GM PACKET PO SCH (15:11)
[2024-03-04 08:41] LABS: BASO % 0.6 % (0-2.0); EOS % 5.5 % (0-4.5); HEMATOCRIT 33.8 % (32.4-45.2); HEMOGLOBIN 10.7 GM/dL (10.7-15.3); MCH 30.4 pg (25.7-33.7); MCHC 31.7 g/dl (32.0-36.0); MEAN PLT VOLUME 7.9 fl (7.5-11.1); MONO % 9.7 % (3.8-10.2); NEUT % 68.2 % (42.8-82.8); PLATELET COUNT 158 10^3/uL (134-434); RBC 3.52 M/mm3 (3.60-5.2); RDW 14.8 % (11.6-15.6); WHITE BLOOD COUNT 7.7 K/mm3 (4.0-10.0)
[2024-03-04 09:02] LABS: POTASSIUM 4.2 mmol/L (3.5-5.1)
[2024-03-04 09:07] LABS: ALBUMIN 2.6 g/dl (3.4-5.0); CALCIUM 9.2 mg/dL (8.5-10.1)
[2024-03-04 09:11] LABS: CREATININE 1.2 mg/dL (0.55-1.3)
[2024-03-04 09:12] LABS: BILIRUBIN,TOTAL 0.6 mg/dL (0.2-1); TOT PROT 6.3 g/dl (6.4-8.2)
[2024-03-04] MEDS: CLOPIDOGREL BISULFATE 75 MG TABLET (FP) PO SCH (09:19)
[2024-03-04] MEDS: ASPIRIN 81 MG CHEWABLE TABLETS PO SCH (09:19)
[2024-03-04] MEDS: LIDOCAINE 5% TOPICAL PATCH TP SCH (11:33)
[2024-03-04] MEDS: DOCUSATE SODIUM 100 MG CAPSULE (FP) PO PRN (12:55)
[2024-03-04] MEDS: oxyCODONE HCL 5 MG TABLET PO PRN (12:55)
[2024-03-04] MEDS: SODIUM CHLORIDE 500 ML IV STA (15:07)
[2024-03-04] MEDS: ERTAPENEM SODIUM 1 GM in SODIUM CHLORIDE 50 ML IVPB ONE (17:06)
[2024-03-04] MEDS: LIDOCAINE PATCH REMOVAL MC SCH (22:00)
[2024-03-05] MEDS: ERTAPENEM SODIUM 1 GM in SODIUM CHLORIDE 50 ML IVPB ONE (16:17)
[2024-03-06 10:57] LABS: BASO % 0.4 % (0-2.0); EOS % 7.1 % (0-4.5); HEMATOCRIT 33.4 % (32.4-45.2); HEMOGLOBIN 10.8 GM/dL (10.7-15.3); LYMPH % 17.7 % (8-40); MCHC 32.2 g/dl (32.0-36.0); MEAN CELL VOLUME 93.1 fl (80-96); MEAN PLT VOLUME 7.9 fl (7.5-11.1); MONO % 7.3 % (3.8-10.2); NEUT % 67.5 % (42.8-82.8); PLATELET COUNT 190 10^3/uL (134-434); RBC 3.58 M/mm3 (3.60-5.2); RDW 14.9 % (11.6-15.6); WHITE BLOOD COUNT 6.3 K/mm3 (4.0-10.0)
[2024-03-06 11:26] LABS: POTASSIUM 4.2 mmol/L (3.5-5.1)
[2024-03-06 11:27] LABS: CALCIUM 9.3 mg/dL (8.5-10.1)
[2024-03-06 11:28] LABS: ALBUMIN 2.5 g/dl (3.4-5.0); BLOOD UREA NITROGEN 12.8 mg/dL (7-18)
[2024-03-06 11:31] LABS: CREATININE 0.9 mg/dL (0.55-1.3)
[2024-03-06 11:33] LABS: BILIRUBIN,TOTAL 0.4 mg/dL (0.2-1); TOT PROT 6.5 g/dl (6.4-8.2)
[2024-03-06] MEDS: MAGNESIUM CITRATE 300 ML BOTTLE PO ONE (14:05)
[2024-03-07 10:23] VITALS: RESP 18
[2024-03-07] MEDS: ERTAPENEM SODIUM 1 GM in SODIUM CHLORIDE 50 ML IVPB SCH (12:41)
[2024-03-07 14:07] VITALS: BP 126/76; PULSE 92; TEMP 98.6
== END 2024-03-07 15:47 | DRG 536 ==
LOC: JER 09:23 → JERBED 14:17 → J6S 16:09
PROVIDERS: ADMIT Internal Medicine; ATTEND Internal Medicine
DX: S72.011A Unspecified intracapsular fracture of right femur, initial encounter for closed fracture (principal); N12 Tubulo-interstitial nephritis, not specified as acute or chronic; J44.9 Chronic obstructive pulmonary disease, unspecified; I73.9 Peripheral vascular disease, unspecified; G62.9 Polyneuropathy, unspecified; K21.9 Gastro-esophageal reflux disease without esophagitis; I10 Essential (primary) hypertension; E78.5 Hyperlipidemia, unspecified; N32.81 Overactive bladder; W08.XXXA Fall from other furniture, initial encounter; Y93.89 Activity, other specified; Y92.89 Other specified places as the place of occurrence of the external cause; Y99.8 Other external cause status; Z89.511 Acquired absence of right leg below knee
CPT/HCPCS: 0241U-QW; 36415; 71045-TC-FY; 72170-TC-FY; 72192-TC; 73562-TC-RT-FY; 74177-TC; 80053; 81003; 83605; 85025; 85610; 85730; 86850; 86900; 86901; 87040; 87086; 97162-GP; 99285-25; Q9967

== ENCOUNTER 2024-05-25 11:34 | Inpatient (IN) | payer OTHER ==
[~2024-05-25 11:34] MED LIST changes: -BSS (NA/CA/MG/K) BALANCED SALT SOLUTION OPHTH SOLN 15 ML BOTTLE OD ONE; -CHONDROITIN SU A/HYALUR SOD 1 KIT IO ONE; -EPINEPHrine/PF 1 MG/1 ML (1:1,000) AMPULE SQ ONE; +ERTAPENEM SODIUM 1 GM in SODIUM CHLORIDE 50 ML IVPB ONE; -LIDOCAINE 1% P/F 10 MG/ML VIAL PNB ONE; -POVIDONE-IODINE 5% OPHTHALMIC PREP 30 ML SOLUTION OD ONE; -TETRACAINE 0.5% OPHTH SOLN 2 ML BOTTLE OD ONE; -TOBRAMYCIN/DEXAMETHASONE OPHTH. OINTMENT 1 TUBE OD ONE
[2024-05-25] MEDS ORDERED: ASPIRIN 81 MG CHEWABLE TABLETS ONE (12:16)
[2024-05-25] MEDS: ASPIRIN 81 MG CHEWABLE TABLETS PO ONE (12:51)
[2024-05-25 12:58] LABS: BASO % 0.4 % (0-2.0); HEMATOCRIT 35.9 % (32.4-45.2); HEMOGLOBIN 11.3 GM/dL (10.7-15.3); LYMPH % 25.2 % (8-40); MCH 26.7 pg (25.7-33.7); MCHC 31.5 g/dl (32.0-36.0); MEAN CELL VOLUME 84.8 fl (80-96); MEAN PLT VOLUME 7.7 fl (7.5-11.1); MONO % 9.6 % (3.8-10.2); NEUT % 60.8 % (42.8-82.8); PLATELET COUNT 229 10^3/uL (134-434); RBC 4.23 M/mm3 (3.60-5.2); RDW 15.1 % (11.6-15.6); WHITE BLOOD COUNT 7.3 K/mm3 (4.0-10.0)
[2024-05-25 13:08] LABS: POTASSIUM 4.6 mmol/L (3.5-5.1)
[2024-05-25 13:10] LABS: ALBUMIN 2.9 g/dl (3.4-5.0); CALCIUM 9.2 mg/dL (8.5-10.1)
[2024-05-25 13:11] LABS: BLOOD UREA NITROGEN 21.4 mg/dL (7-18)
[2024-05-25 13:13] LABS: CREATININE 0.7 mg/dL (0.55-1.3)
[2024-05-25 13:15] LABS: BILIRUBIN,TOTAL 0.3 mg/dL (0.2-1); TOT PROT 7.4 g/dl (6.4-8.2)
[2024-05-25 13:29] LABS: EPI CELLS 13 /uL (0-25.1); HYALINE CASTS 1 /uL (0-3.1); URINE APPEARANCE TURBID; URINE BACTERIA 738 /uL (0-1359); URINE BILIRUBIN NEGATIVE (NEGATIVE); URINE COLOR YELLOW; URINE GLUCOSE (UA) NEGATIVE (NEGATIVE); URINE KETONE NEGATIVE (NEGATIVE); URINE LEUK ESTERASE 3+ (NEGATIVE); URINE NITRITE NEGATIVE (NEGATIVE); URINE PROTEIN 1+ (NEGATIVE); URINE UROBILINOGEN 0.2 mg/dL (0.2-1.0); URINE WBC 8711 /uL (0-25.8)
[2024-05-25] MEDS ORDERED: CEFTRIAXONE 1 G/50 ML PREMIX 50 ML IVPB ONE (14:13)
[2024-05-25 14:35] LABS: URINE RBC 650 /uL (0-23.9)
[2024-05-25 14:36] LABS: YEAST NONE SEEN (NEGATIVE)
[2024-05-25] MEDS: CEFTRIAXONE 1,000 MG in DEXTROSE 5%-WATER - 50 ML IVPB ONE (14:40)
[2024-05-25] MEDS ORDERED: diphenhydrAMINE HCL 25 MG CAPSULE (FP) PO ONE (15:35)
[2024-05-25] MEDS: diphenhydrAMINE HCL 25 MG CAPSULE (FP) PO ONE (15:38)
[2024-05-25] MEDS ORDERED: ALBUTEROL SO4 HFA INHALER IH PRN (16:13)
[2024-05-25] MEDS ORDERED: ACETAMINOPHEN 325 MG TABLET (FP) PO PRN (16:19)
[2024-05-25] MEDS: BUDESONIDE/FORMETEROL FUMARATE 160/4.5 mcg INHALER IH SCH (23:46)
[2024-05-26] MEDS: diphenhydrAMINE HCL 25 MG CAPSULE (FP) PO ONE (00:32)
[2024-05-26 00:56] VITALS: RESP 18; BMI 23.6
[2024-05-26] MEDS: ACETAMINOPHEN 1000 MG/100 ML BAG IVPB ONE (02:47)
[2024-05-26 07:21] LABS: POTASSIUM 3.8 mmol/L (3.5-5.1)
[2024-05-26 07:25] LABS: ALBUMIN 2.8 g/dl (3.4-5.0)
[2024-05-26 07:27] LABS: CREATININE 0.7 mg/dL (0.55-1.3)
[2024-05-26 07:28] LABS: BASO % 0.6 % (0-2.0); EOS % 5.3 % (0-4.5); HEMATOCRIT 34.2 % (32.4-45.2); HEMOGLOBIN 10.8 GM/dL (10.7-15.3); LYMPH % 30.6 % (8-40); MCH 26.8 pg (25.7-33.7); MCHC 31.5 g/dl (32.0-36.0); MEAN CELL VOLUME 85.1 fl (80-96); MEAN PLT VOLUME 7.8 fl (7.5-11.1); MONO % 8.5 % (3.8-10.2); PLATELET COUNT 220 10^3/uL (134-434); RBC 4.02 M/mm3 (3.60-5.2); RDW 14.4 % (11.6-15.6); WHITE BLOOD COUNT 6.1 K/mm3 (4.0-10.0)
[2024-05-26 07:29] LABS: BILIRUBIN,TOTAL 0.2 mg/dL (0.2-1); TOT PROT 6.8 g/dl (6.4-8.2)
[2024-05-26] MEDS ORDERED: CEFTRIAXONE 1 GM in DEXTROSE 5%-WATER - 50 ML IVPB SCH (10:00)
[2024-05-26] MEDS: GABAPENTIN 300 MG CAPSULE PO PRN (10:00)
[2024-05-26] MEDS: ASPIRIN 81 MG CHEWABLE TABLETS PO SCH (10:20)
[2024-05-26] MEDS: VALSARTAN 160 MG TABLET PO SCH (10:20)
[2024-05-26] MEDS: PANTOPRAZOLE 40 MG TABLET PO SCH (10:20)
[2024-05-26] MEDS: CLOPIDOGREL BISULFATE 75 MG TABLET (FP) PO SCH (10:20)
[2024-05-26] MEDS: ERTAPENEM SODIUM 1 GM in SODIUM CHLORIDE 50 ML IVPB ONE (10:40)
[2024-05-26] MEDS: GABAPENTIN 300 MG CAPSULE PO SCH (14:26)
[2024-05-26] MEDS: ATORVASTATIN CA 80 MG TABLET (FP) PO SCH (22:03)
[2024-05-27] MEDS: ERTAPENEM SODIUM 1 GM in SODIUM CHLORIDE 50 ML IVPB SCH (09:17)
[2024-05-28 15:57] VITALS: BP 127/76; PULSE 96; TEMP 98.4
== END 2024-05-28 17:00 | disposition home or self-care (01) | DRG 313 ==
LOC: JER 11:34 → JERBED 15:53 → J4W 05-26 00:07 → OBSVTOIN 05-26 11:35
PROVIDERS: ADMIT Internal Medicine; ATTEND Internal Medicine
DX: R07.89 Other chest pain (principal); N39.0 Urinary tract infection, site not specified; I25.10 Atherosclerotic heart disease of native coronary artery without angina pectoris; E78.5 Hyperlipidemia, unspecified; I73.9 Peripheral vascular disease, unspecified; J44.9 Chronic obstructive pulmonary disease, unspecified; E78.00 Pure hypercholesterolemia, unspecified; I10 Essential (primary) hypertension; M32.9 Systemic lupus erythematosus, unspecified; K21.9 Gastro-esophageal reflux disease without esophagitis; G62.9 Polyneuropathy, unspecified; Z89.612 Acquired absence of left leg above knee; Z89.511 Acquired absence of right leg below knee
CPT/HCPCS: 0241U-QW; 36415; 71045-TC-FY; 71250-TC; 71275-TC; 80053; 81003; 82550; 84484; 85025; 85379; 87086; 93005; 93010; 99285-25; G0378; J0131

== ENCOUNTER 2024-05-31 19:10 | Inpatient (IN) | payer OTHER ==
[2024-05-31] MEDS ORDERED: ALBUTEROL SO4 2.5/IPRATROPIUM 0.5 INH SOL 3 ML VIAL.NEB. NEB ONE (20:05)
[2024-05-31] MEDS ORDERED: ACETAMINOPHEN 500 MG TABLET (FP) ONE (20:06)
[2024-05-31] MEDS: ALBUTEROL SO4 2.5/IPRATROPIUM 0.5 INH SOL 3 ML VIAL.NEB. NEB ONE (20:37)
[2024-05-31] MEDS: SODIUM CHLORIDE 0.9% 500 ML INFUS.BAG IV ONE (20:37)
[2024-05-31] MEDS: ACETAMINOPHEN 500 MG TABLET (FP) PO ONE (20:38)
[2024-05-31 20:41] LABS: VENOUS BASE EXCESS -4.9 mmol/L (-2-2); VENOUS O2 SATURATION 57.3 % (70-80); VENOUS PCO2 40.1 mmHg (38-52); VENOUS PH 7.33 (7.310-7.410)
[2024-05-31 20:43] LABS: BASO % 0.4 % (0-2.0); EOS % 0.1 % (0-4.5); HEMATOCRIT 37.6 % (32.4-45.2); HEMOGLOBIN 11.9 GM/dL (10.7-15.3); LYMPH % 24.4 % (8-40); MCH 26.6 pg (25.7-33.7); MCHC 31.6 g/dl (32.0-36.0); MEAN CELL VOLUME 84.2 fl (80-96); MEAN PLT VOLUME 8.2 fl (7.5-11.1); MONO % 13.2 % (3.8-10.2); NEUT % 61.9 % (42.8-82.8); PLATELET COUNT 219 10^3/uL (134-434); RBC 4.47 M/mm3 (3.60-5.2); RDW 15.6 % (11.6-15.6); WHITE BLOOD COUNT 6.4 K/mm3 (4.0-10.0)
[2024-05-31 20:51] LABS: INR 1.09 (0.83-1.09)
[2024-05-31 20:53] LABS: ACTIVATED PTT 33.5 SECONDS (25.2-36.5)
[2024-05-31 21:02] LABS: POTASSIUM 4.1 mmol/L (3.5-5.1)
[2024-05-31 21:04] LABS: ALBUMIN 3.3 g/dl (3.4-5.0); MAGNESIUM 2.3 mg/dL (1.8-2.4)
[2024-05-31 21:08] LABS: BLOOD UREA NITROGEN 48.4 mg/dL (7-18); CREATININE 2.8 mg/dL (0.55-1.3)
[2024-05-31 21:09] LABS: BILIRUBIN,TOTAL 0.4 mg/dL (0.2-1)
[2024-05-31 21:12] LABS: N-TERMINAL BNP 299.8 pg/ml (5-125)
[2024-05-31] MEDS ORDERED: DEXAMETHASONE SOD PHOSPHATE 10 MG/1 ML VIAL ONE (21:19)
[2024-05-31] MEDS: BUDESONIDE 0.5 MG/2 ML INH SUSP VIAL NEB ONE (21:22)
[2024-05-31] MEDS: DEXAMETHASONE SOD PHOSPHATE 10 MG/1 ML VIAL IVPUSH ONE (21:22)
[2024-05-31] MEDS ORDERED: AZITHROMYCIN 500 MG TABLET ONE (23:06)
[2024-05-31] MEDS ORDERED: OSELTAMIVIR PHOSPHATE 30 MG CAPSULE ONE (23:07)
[2024-05-31] MEDS ORDERED: AZITHROMYCIN 250 MG TABLET ONE (23:07)
[2024-05-31] MEDS: AZITHROMYCIN 250 MG TABLET PO ONE (23:21)
[2024-05-31] MEDS: OSELTAMIVIR PHOSPHATE 30 MG CAPSULE PO ONE (23:21)
[2024-05-31] MEDS: SODIUM CHLORIDE 500 ML IV STA (23:21)
[2024-06-01] MEDS ORDERED: POLYETHYLENE GLYCOL 3350 255 GM BTL PO PRN (05:05)
[2024-06-01] MEDS ORDERED: ALBUTEROL SO4 2.5/IPRATROPIUM 0.5 INH SOL 3 ML VIAL.NEB. NEB PRN (05:05)
[2024-06-01] MEDS: CLOPIDOGREL BISULFATE 75 MG TABLET (FP) PO SCH (09:25)
[2024-06-01] MEDS: OSELTAMIVIR PHOSPHATE 30 MG CAPSULE PO SCH (09:25)
[2024-06-01] MEDS: ASPIRIN 81 MG CHEWABLE TABLETS PO SCH (09:25)
[2024-06-01] MEDS: PANTOPRAZOLE 40 MG TABLET PO SCH (09:25)
[2024-06-01 09:34] LABS: HEMATOCRIT 34.1 % (32.4-45.2); HEMOGLOBIN 10.7 GM/dL (10.7-15.3); MCH 26.4 pg (25.7-33.7); MCHC 31.3 g/dl (32.0-36.0); MEAN CELL VOLUME 84.1 fl (80-96); MEAN PLT VOLUME 8.1 fl (7.5-11.1); PLATELET COUNT 187 10^3/uL (134-434); RBC 4.05 M/mm3 (3.60-5.2); RDW 15.2 % (11.6-15.6); WHITE BLOOD COUNT 2.7 K/mm3 (4.0-10.0)
[2024-06-01 09:44] LABS: POTASSIUM 4.1 mmol/L (3.5-5.1)
[2024-06-01 09:48] LABS: BLOOD UREA NITROGEN 56.5 mg/dL (7-18); CALCIUM 8.3 mg/dL (8.5-10.1)
[2024-06-01 09:49] LABS: MAGNESIUM 2.2 mg/dL (1.8-2.4)
[2024-06-01 09:52] LABS: CREATININE 3.2 mg/dL (0.55-1.3); PHOSPHOROUS 6.2 mg/dL (2.5-4.9)
[2024-06-01] MEDS ORDERED: OSELTAMIVIR PHOSPHATE 75 MG CAPSULE PO SCH (10:00)
[2024-06-01 12:50] VITALS: BMI 22.6
[2024-06-01] MEDS: GABAPENTIN 100 MG CAPSULE PO SCH (13:29)
[2024-06-01] MEDS ORDERED: METHOCARBAMOL 500 MG TABLET PO SCH (14:00)
[2024-06-01] MEDS ORDERED: GABAPENTIN 300 MG CAPSULE PO SCH (14:00)
[2024-06-01] MEDS: LIDOCAINE 5% TOPICAL PATCH TP SCH (17:06)
[2024-06-01] MEDS: ATORVASTATIN CA 80 MG TABLET (FP) PO SCH (22:48)
[2024-06-01] MEDS: HEPARIN NA (PORCINE) 5,000 UNITS/ML 1ML VIAL SQ SCH (22:48)
[2024-06-01] MEDS: LIDOCAINE PATCH REMOVAL MC SCH (22:51)
[2024-06-02 00:01] LABS: EPI CELLS >36 /uL (0-25.1); HYALINE CASTS 6 /uL (0-3.1); URINE APPEARANCE CLOUDY; URINE BACTERIA 20 /uL (0-1359); URINE BILIRUBIN NEGATIVE (NEGATIVE); URINE COLOR YELLOW; URINE GLUCOSE (UA) NEGATIVE (NEGATIVE); URINE KETONE NEGATIVE (NEGATIVE); URINE LEUK ESTERASE 1+ (NEGATIVE); URINE NITRITE NEGATIVE (NEGATIVE); URINE PROTEIN 1+ (NEGATIVE); URINE UROBILINOGEN 0.2 mg/dL (0.2-1.0); URINE WBC 297 /uL (0-25.8)
[2024-06-02] MEDS: ACETAMINOPHEN 325 MG TABLET (FP) PO PRN (00:43)
[2024-06-02 00:47] LABS: URINE RBC 334.9 /uL (0-23.9); YEAST NONE SEEN (NEGATIVE)
[2024-06-02] MEDS: MELATONIN 5 MG TABLETS PO ONE (01:39)
[2024-06-02] MEDS: LACTATED RINGERS SOLUTION 1,000 ML/1,000 ML INFUS.BAG IV SCH (22:59)
[2024-06-03 09:02] LABS: POTASSIUM 3.3 mmol/L (3.5-5.1)
[2024-06-03 09:06] LABS: BLOOD UREA NITROGEN 69.4 mg/dL (7-18); CALCIUM 7.4 mg/dL (8.5-10.1)
[2024-06-03 09:10] LABS: CREATININE 4.8 mg/dL (0.55-1.3)
[2024-06-03 09:11] LABS: BILIRUBIN,TOTAL 0.3 mg/dL (0.2-1)
[2024-06-03 09:12] LABS: ALBUMIN 2.4 g/dl (3.4-5.0)
[2024-06-03] MEDS: methylPREDNISolone NA SUCC 40 MG/1 ML VIAL IVPUSH SCH (12:01)
[2024-06-03] MEDS: CEFEPIME HCL/D5W 1 GM/50 ML BAG IVPB SCH (12:01)
[2024-06-03 21:53] LABS: PH,URINE 5.5 (5.0-8.0); URINE APPEARANCE Clear; URINE BILIRUBIN Negative (NEGATIVE); URINE COLOR Yellow; URINE GLUCOSE (UA) Negative (NEGATIVE); URINE KETONE Negative (NEGATIVE); URINE LEUK ESTERASE Negative (NEGATIVE); URINE NITRITE Negative (NEGATIVE); URINE PROTEIN Negative (NEGATIVE); URINE UROBILINOGEN 0.2 mg/dL (0.2-1.0)
[2024-06-03 21:56] LABS: EPI CELLS 22 /uL (0-25.1); HYALINE CASTS 1 /uL (0-3.1); URINE BACTERIA 15 /uL (0-1359); URINE RBC 8 /uL (0-23.9); URINE WBC 23 /uL (0-25.8)
[2024-06-04] MEDS: ERTAPENEM SODIUM 0.5 GM in SODIUM CHLORIDE 50 ML IVPB SCH (09:34)
[2024-06-04 09:42] LABS: BASO % 0.3 % (0-2.0); HEMATOCRIT 31.4 % (32.4-45.2); HEMOGLOBIN 9.8 GM/dL (10.7-15.3); LYMPH % 29.7 % (8-40); MCH 26.2 pg (25.7-33.7); MCHC 31.2 g/dl (32.0-36.0); MEAN PLT VOLUME 8.6 fl (7.5-11.1); MONO % 6.9 % (3.8-10.2); NEUT % 63.1 % (42.8-82.8); PLATELET COUNT 156 10^3/uL (134-434); RBC 3.74 M/mm3 (3.60-5.2); RDW 15.3 % (11.6-15.6); WHITE BLOOD COUNT 2.5 K/mm3 (4.0-10.0)
[2024-06-04 09:57] LABS: POTASSIUM 3.9 mmol/L (3.5-5.1)
[2024-06-04 09:59] LABS: ALBUMIN 2.6 g/dl (3.4-5.0); BLOOD UREA NITROGEN 62.9 mg/dL (7-18); CALCIUM 8.2 mg/dL (8.5-10.1)
[2024-06-04 10:03] LABS: CREATININE 3.8 mg/dL (0.55-1.3)
[2024-06-04 10:04] LABS: BILIRUBIN,TOTAL 0.2 mg/dL (0.2-1); TOT PROT 6.9 g/dl (6.4-8.2)
[2024-06-04] MEDS: ALBUTEROL SO4 HFA INHALER IH SCH (14:15)
[2024-06-04] MEDS: CEFEPIME HCL 1 GM VIAL (RESTRICTED TO ID) IVPB SCH (19:14)
[2024-06-05 09:42] LABS: BASO % 0.1 % (0-2.0); HEMATOCRIT 27.2 % (32.4-45.2); HEMOGLOBIN 8.8 GM/dL (10.7-15.3); MCHC 32.3 g/dl (32.0-36.0); MEAN CELL VOLUME 83.6 fl (80-96); MEAN PLT VOLUME 8.5 fl (7.5-11.1); MONO % 3.7 % (3.8-10.2); NEUT % 83.2 % (42.8-82.8); PLATELET COUNT 158 10^3/uL (134-434); RBC 3.25 M/mm3 (3.60-5.2); RDW 15.5 % (11.6-15.6); WHITE BLOOD COUNT 4.2 K/mm3 (4.0-10.0)
[2024-06-05 10:09] LABS: POTASSIUM 3.7 mmol/L (3.5-5.1)
[2024-06-05 10:15] LABS: ALBUMIN 2.5 g/dl (3.4-5.0); CALCIUM 8.3 mg/dL (8.5-10.1)
[2024-06-05 10:16] LABS: BLOOD UREA NITROGEN 49.4 mg/dL (7-18)
[2024-06-05 10:19] LABS: CREATININE 2.5 mg/dL (0.55-1.3)
[2024-06-05 10:20] LABS: BILIRUBIN,TOTAL 0.2 mg/dL (0.2-1); TOT PROT 6.2 g/dl (6.4-8.2)
[2024-06-05] MEDS: methylPREDNISolone NA SUCC 40 MG/1 ML VIAL IVPUSH SCH (17:46)
[2024-06-06] MEDS: ALBUTEROL SO4 2.5/IPRATROPIUM 0.5 INH SOL 3 ML VIAL.NEB. NEB ONE (08:58)
[2024-06-06 09:49] LABS: BASO % 0.1 % (0-2.0); HEMATOCRIT 26.7 % (32.4-45.2); HEMOGLOBIN 8.5 GM/dL (10.7-15.3); LYMPH % 10.4 % (8-40); MCH 26.9 pg (25.7-33.7); MCHC 31.9 g/dl (32.0-36.0); MEAN CELL VOLUME 84.3 fl (80-96); MEAN PLT VOLUME 8.6 fl (7.5-11.1); MONO % 4.4 % (3.8-10.2); NEUT % 85.1 % (42.8-82.8); PLATELET COUNT 203 10^3/uL (134-434); RBC 3.16 M/mm3 (3.60-5.2); RDW 15.5 % (11.6-15.6); WHITE BLOOD COUNT 5.2 K/mm3 (4.0-10.0)
[2024-06-06 10:13] LABS: POTASSIUM 3.6 mmol/L (3.5-5.1)
[2024-06-06 10:20] LABS: CALCIUM 7.9 mg/dL (8.5-10.1)
[2024-06-06 10:21] LABS: ALBUMIN 2.4 g/dl (3.4-5.0)
[2024-06-06 10:24] LABS: CREATININE 1.4 mg/dL (0.55-1.3)
[2024-06-06 10:25] LABS: BILIRUBIN,TOTAL 0.2 mg/dL (0.2-1); TOT PROT 6.1 g/dl (6.4-8.2)
[2024-06-06] MEDS: SODIUM CHLORIDE 0.45% 1,000 ML IV SCH (17:43)
[2024-06-06 20:21] LABS: EPI CELLS 11 /uL (0-25.1); HYALINE CASTS 0 /uL (0-3.1); URINE APPEARANCE CLEAR; URINE BACTERIA 3 /uL (0-1359); URINE BILIRUBIN NEGATIVE (NEGATIVE); URINE COLOR YELLOW; URINE GLUCOSE (UA) NEGATIVE (NEGATIVE); URINE KETONE NEGATIVE (NEGATIVE); URINE LEUK ESTERASE NEGATIVE (NEGATIVE); URINE NITRITE NEGATIVE (NEGATIVE); URINE PROTEIN TRACE (NEGATIVE); URINE RBC 252 /uL (0-23.9); URINE UROBILINOGEN 0.2 mg/dL (0.2-1.0); URINE WBC 26 /uL (0-25.8)
[2024-06-06] MEDS: methylPREDNISolone NA SUCC 40 MG/1 ML VIAL IVPUSH SCH (21:28)
[2024-06-07 09:46] LABS: POTASSIUM 3.6 mmol/L (3.5-5.1)
[2024-06-07] MEDS: ENOXAPARIN NA (PORCINE) 30 MG/0.3 ML DISP.SYRIN SQ SCH (09:50)
[2024-06-07 10:05] LABS: ALBUMIN 2.3 g/dl (3.4-5.0); BLOOD UREA NITROGEN 26.8 mg/dL (7-18)
[2024-06-07 10:09] LABS: BILIRUBIN,TOTAL 0.2 mg/dL (0.2-1); TOT PROT 5.5 g/dl (6.4-8.2)
[2024-06-07 11:04] LABS: CALCIUM 7.6 mg/dL (8.5-10.1)
[2024-06-07] MEDS: BENZONATATE 200 MG CAPSULE PO SCH (14:30)
[2024-06-08 09:41] LABS: EOS % 0.1 % (0-4.5); HEMATOCRIT 25.9 % (32.4-45.2); HEMOGLOBIN 8.4 GM/dL (10.7-15.3); LYMPH % 20.5 % (8-40); MCH 26.9 pg (25.7-33.7); MCHC 32.3 g/dl (32.0-36.0); MEAN CELL VOLUME 83.3 fl (80-96); MEAN PLT VOLUME 8.1 fl (7.5-11.1); MONO % 7.3 % (3.8-10.2); NEUT % 72.1 % (42.8-82.8); PLATELET COUNT 252 10^3/uL (134-434); RBC 3.11 M/mm3 (3.60-5.2); RDW 15.8 % (11.6-15.6); WHITE BLOOD COUNT 5.1 K/mm3 (4.0-10.0)
[2024-06-08] MEDS: BISACODYL 5 MG TABLET.DR (FP) PO ONE (13:12)
[2024-06-08] MEDS: SENNOSIDES 8.6MG TABLET (FP) PO SCH (21:16)
[2024-06-09] MEDS: LOPERAMIDE HCL 2 MG CAPSULE PO PRN (16:03)
[2024-06-09] MEDS: SODIUM CHLORIDE 0.45% 1,000 ML IV SCH (17:58)
[2024-06-10] MEDS: ALBUTEROL SO4 HFA INHALER IH PRN (14:32)
[2024-06-10] MEDS: ALBUTEROL SO4 2.5/IPRATROPIUM 0.5 INH SOL 3 ML VIAL.NEB. NEB SCH (15:15)
[2024-06-10 15:48] VITALS: RESP 18
[2024-06-10] MEDS ORDERED: POLYETHYLENE GLYCOL (HEALTHYLAX) 3350 17 GM PACKET PO PRN (23:50)
[2024-06-11] MEDS: methylPREDNISolone NA SUCC 40 MG/1 ML VIAL IM ONE (23:30)
[2024-06-12 12:21] VITALS: BP 155/78; PULSE 112; TEMP 98.4
== END 2024-06-12 14:04 | disposition home or self-care (01) | DRG 683 ==
LOC: JER 19:10 → J8W 23:40 → INTOOBSV 06-01 00:12 → JERBED 06-01 00:12 → UNDOADMOB 06-01 00:12 → OBSVTOIN 06-01 00:12 → J8W 06-01 02:09 → JERBED 06-01 02:09 → J8W 06-01 14:20 → JERBED 06-01 14:20
PROVIDERS: ADMIT Nurse Practitioner Family; ATTEND Internal Medicine
DX: N17.9 Acute kidney failure, unspecified (principal); J44.1 Chronic obstructive pulmonary disease with (acute) exacerbation; R65.10 Systemic inflammatory response syndrome (SIRS) of non-infectious origin without acute organ dysfunction; I73.9 Peripheral vascular disease, unspecified; K21.9 Gastro-esophageal reflux disease without esophagitis; M32.9 Systemic lupus erythematosus, unspecified; I10 Essential (primary) hypertension; J10.1 Influenza due to other identified influenza virus with other respiratory manifestations; G62.9 Polyneuropathy, unspecified; R31.9 Hematuria, unspecified; M81.0 Age-related osteoporosis without current pathological fracture; M79.7 Fibromyalgia; K59.00 Constipation, unspecified; I95.89 Other hypotension
CPT/HCPCS: 0241U-QW; 36415; 71045-TC-FY; 74176-TC; 76775-TC; 80048; 80053; 81003; 82043; 82570; 82803; 83605; 83735; 83880; 84100; 84156; 84484; 85025; 85027; 85610; 85730; 86038; 86160; 86225; 86235; 86850; 86900; 86901; 87040; 87086; 87324; 87449; 87635; 93005; 93010; 94640; 99285-25; J1100; J1644

== ENCOUNTER → 2024-12-03 | Day surgery (SDC) | payer OTHER | END | disposition home or self-care (01) | LOC: JRADUS-SUR 10:15 | PROVIDERS: ATTEND Internal Medicine | PROC: 0H9T3ZX Drainage of Right Breast, Percutaneous Approach, Diagnostic (ICD-10-PCS; principal; 2024-12-03) | DX: D24.1 Benign neoplasm of right breast (principal) | CPT/HCPCS: 19083; 76942-TC; 77065-TC; 87899; 88305-TC; A4648 ==

== ENCOUNTER 2025-01-19 06:28 | Day surgery (SDC) | payer OTHER ==
[2025-01-14 11:53] VITALS: BMI 23.6
[2025-01-19 11:09] VITALS: RESP 20
[2025-01-19] MEDS ORDERED: MIDAZOLAM HCL 2 MG/2 ML SINGLE DOSE VIAL ONE (12:49)
[2025-01-19] MEDS ORDERED: ONDANSETRON 4 MG/2 ML VIAL ONE (12:49)
[2025-01-19 15:48] VITALS: TEMP 98
[2025-01-19 15:52] VITALS: BP 130/69; PULSE 70
== END 2025-01-19 13:56 | disposition home or self-care (01) ==
LOC: JASU-SURG 06:28
PROVIDERS: ATTEND Urology
PROC: 0TF4XZZ Fragmentation in Left Kidney Pelvis, External Approach (ICD-10-PCS; principal; 2025-01-19 13:00)
DX: N20.0 Calculus of kidney (principal)